=== PATIENT | male | born 1970 | race Caucasian/White ===

== ENCOUNTER 2016-12-25 12:25 | Inpatient (IN) | payer OTHER ==
[~2016-12-25] VITALS: Ht 172.7 cm; Wt 85.0 kg
--- NOTE | 2016-12-25 12:49 | NUR ---
PT REPORTS WAS SLEEPING AND WOKE UP WITH "SWEATING PERFUSELY" PER FAMILY MEMBER HE WAS BREATHING HARD AND NOTICED A RASH AROUND HIS CHEST AND BACK, PT STS "THINK I HAD A SEIZURE" PT REPORTS HAVING HX OF SEIZURES SINCE HE HAD "HEAD SURGERY ALMOST JUNE 6 YEARS AGO" PT REPORTS HX OF OPEN HEART SURGERY TWICE, STS "CHANGED VALVE IN [facility] IN " PT STS WHICH IS WHY HE CURRENTLY TAKES COUMADIN, SMALL PETECHAIE NOTED TO CHUCK SIDES OF NECK AND UPPER CHEST AND ABOVE SHOULDERS, DURING MSE ORAL TRAUMA NOTED TO LEFT SIDE OF TONGUE, PT DENIES CP BUT REPORTS BACK PAIN, PT REPORTS NO SIGNIFICANT CHANGES IN MOVEMING EXTREMITIES, PT FOLLOWING COMMANDS APPROPRIATELY, PT REPORTS CHANGES IN COUMADIN DOSES RECENTLY TO DR. PERLA, NO NEURO DEFICITS NOTED AT THIS TIME, PT REPORTS "BAD HEADACHE AND MY LEFT ARM HURT" PT SPEAKING IN CLEAR AND COMPLETE SENTENCES, NO FACIAL DROOPING, PT REPORTS PAIN TO LEFT SHOULDER UPON LIFTING UP, PT DENIES RECENT FALL, PT AAOX4, RESP EVEN AND UNLABORED, AT THIS TIME, 02 SAT 99% ON RA AT THIS TIME, PT IN NO ACUTE DISTRESS, CALL LIGHT WITHIN REACH, WILL CONTINUE TO MONITOR
--- NOTE | 2016-12-25 12:49 | NUR ---
DR. PERLA AT BEDSIDE FOR MSE
--- NOTE | 2016-12-25 13:00 | NUR ---
EKG IN PROGRESS
--- NOTE | 2016-12-25 13:02 | NUR ---
LAB AT BEDSIDE FOR BLOOD DRAW
[2016-12-25 13:12] LABS: BASOPHIL % 0.2 % (0-2); PLATELET COUNT 211 x10^3mcL (130-400); RED CELL DISTRIBUTION WIDTH 13.3 % (11.5-14.5)
--- NOTE | 2016-12-25 13:15 | NUR ---
[facility] RADIOLOGY AT BEDSIDE FOR XRAY OF LEFT SHOULDER
[2016-12-25 13:24] LABS: CALCIUM 9.2 mg/dL (8.5-10.1); CARBON DIOXIDE 25.9 mmol/L (21-32); CHLORIDE SERUM 98 mmol/L (98-107); CREATININE SERUM 0.9 mg/dL (0.7-1.3); GFR1 > 60 mL/min; GLUCOSE SERUM 109 mg/dL (74-106); POTASSIUM SERUM 3.9 mmol/L (3.5-5.1); SODIUM SERUM 135 mmol/L (136-145)
[2016-12-25 13:29] LABS: ALBUMIN 4.1 g/dL (3.4-5.0); ALKALINE PHOSPHATASE 67 U/L (46-116); ALT/SGPT 44 U/L (16-63); AST/SGOT 33 U/L (15-37); BILIRUBIN TOTAL 0.36 mg/dL (0.20-1.00); HDL CHOLESTEROL 43 mg/dL (40-60); MAGNESIUM 2.2 mg/dL (1.8-2.4); TOTAL PROTEIN, SERUM 7.4 g/dL (6.4-8.2)
[2016-12-25 13:36] LABS: CHOLESTEROL 262 mg/dL (<200)
--- NOTE | 2016-12-25 14:28 | NUR ---
PT TAKEN TO CT VIA WHEELCHAIR AND IN A STABLE CONDITION AT THIS TIME
--- NOTE | 2016-12-25 15:04 | NUR ---
PT BACK FROM CT WITH NO INCIDENCE
--- NOTE | 2016-12-25 15:23 | NUR ---
DR. PERLA AT BEDSIDE DISCUSSING POC WITH PT AND PTS FAMILY MEMBER
[2016-12-25] MEDS ORDERED: PHOSLO667 MG PO (15:54)
[2016-12-25] MEDS ORDERED: TOPROL XL25 MG PO (15:56)
[2016-12-25] MEDS ORDERED: COU5 PO (15:56)
[2016-12-25] MEDS ORDERED: ZOLOFT100 MG PO (15:57)
[2016-12-25] MEDS ORDERED: DIVALPROEX SOD500 M2 PO (15:57)
[2016-12-25] MEDS ORDERED: PRAZOSIN HYDROCH2 MG PO (15:58)
[2016-12-25] MEDS ORDERED: SEROQUEL XR300 M1 PO (15:58)
[2016-12-25] MEDS ORDERED: MASON NATURAL1000 IU PO (15:58)
[2016-12-25] MEDS ORDERED: TOPAMAX50 M1 PO (15:59)
--- NOTE | 2016-12-25 16:00 | NUR ---
MED REC COMPLETED, MRSA SWAB COLLECTED AND SENT TO LAB
[2016-12-25 16:27] LABS: T3 TOTAL 0.91 ng/mL
--- NOTE | 2016-12-25 16:49 | NUR ---
REPORT GIVEN TO ULISSES JACQUES TELE FLOOR TO ASSUME CARE OF PT AFTER TRANSPORT
--- NOTE | 2016-12-25 17:00 | NUR ---
PT REPORTS PAIN LOWERED FROM 9/10 TO 6/10 AT THIS TIME
[2016-12-25 17:07] VITALS: BP 143/82
--- NOTE | 2016-12-25 17:29 | NUR ---
RECEIVED PATIENT RESTING IN BED, IN NO ACUTE DISTRESS, C/O HEADACHE WILL MEDICATE ORDERED, SEIZURE PRECAUTIONS IN PLACE, ORIENTED PATIENT TO ROOM AND SURROUNDINGS, BED IN LOW POSITION, BED RAILS UP X 2, CALL LIGHT WITHIN REACH, WILL ENDORSE CARE TO [facility].
--- NOTE | 2016-12-25 18:08 | NUR ---
RECEIVED PATIENT ALERT AND ORIENTED TIMES FOUR. PATIENT WAS AT HOME AND GOT UP TO USE THE RESTROOM IN THE MORNING AND WAS DRENCHED IN SWEAT. PATIENT HAS NOTED BIT HIS TONGUE AND HAD A SORE LEFT SHOULDER. PER XRAY NO FRACTURE NOTED. ACCORDING TO THE CT OF THE HEAD NO INFARCT THAT IS NEW NOTED. PATIENT HAS A HISTORY OF CVA, BRAIN SURGERY, HTN, DEPRESSION AND POST TRAUMATIC STRESS SYNDROME. 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 PATIENT HAS CLEAR BREATH SOUNDS AND BOWEL SOUNDS ACTIVE. PATIENT ON TELE NUMBER [id number] AND IS NORMAL SINUS AT THIS TIME. PATIENT HAS BEEN GIVEN MORPHINE SEVERAL TIMES IN ER FOR A HEADACHE AND A BOLUS OF IV FLUIDS WELL. RECEIVED A CALL ABOUT THE LACTIC ACID LEVEL AND INFORM THE RAILROAD HAND OF 3.5. AWAITING ORDERS AT THIS TIME. PATIENT STATES HE HAS HAD TWO SURGERIES TO THE HEART AND HAS A ST RO[facility] VALVE ISSUE. PATIENT HAS HAD A CVA AND HX OF DEPRESSION. PATIENT STATES HE WAS SUFFERING FROM PTSD DUE TO HIS JOB IN THE [employer] AND HE STATES HE SAVE LIFES OF TWO MEN IN THE FIELD AND HE BELIEVES THIS CAUSED HIS DISORDER. PATIENT IS ABLE TO AMBULATE AND DENIES ANY FALL AT HOME.APPLIED THE SCDS AND IV FLUIDS AT 100CC PAT THIS TIME. SPOKE WITH THE DAUGHTER AND REFERED HER TO HER FATHER AND THEY SPOKE ON THE PHONE. PATIENT NOTED WITH MILD CARDIOMEGALY AND WITH A US OF THE CAROTID TO BE DONE WELL A FOLLOW LACTIC ACID. PATIEMT DID BIT HIS TONGUE ON THE LEFT SIDE OF THE MOUTH. OTHER LABS NOTED ARE WBCT 14.9, PT AT 45.2, PTT AT 51.9, CHOLESTEROL AT 262. VITALS IN THE ER WERE 159/93, 12, 84, 97%, AND 98.1. NOTED ALLERGY TO MOTRIN AND CAUSES STOMACH UPSET. WILL CONTINUE TO MONITOR AND SIDE RAILS PADDED FOR SEIZURE PROTOCAL.
[2016-12-25 18:27] LABS: AMYLASE 64 U/L (25-115); CHOLESTEROL 266 mg/dL (<200); CHOLESTEROL/HDL RATIO 6.3; HDL CHOLESTEROL 42 mg/dL (40-60); LIPASE 106 IU/L (73-393); PHOSPHOROUS 3.4 mg/dL (2.5-4.9); TRIGLYCERIDES 544 mg/dL (<150)
[2016-12-25 18:37] LABS: FREE T4 0.89 ng/dL (0.76-1.46); FREE THYROXINE INDEX 2.1 ug/dL (1.4-4.5); T4(THYROXINE) 6.2 ug/dL (4.7-13.3)
--- NOTE | 2016-12-25 19:45 | NUR ---
RECEIEVD Pt AAOX3 CALM AND COOPERATIVE WITH CARE. DENIES ANY CHEST PAIN. LUNG SOUNDS ARE CTA BILATERALLY. Pt IS ON ROOM AIR WITH PULSE OX OF 98%. C/O LEFT SHOULDER PAIN AND HEADACHE AT 6/10. ACTIVE BOWEL SOUNDS X4 QUADS. DENIES ANY ABD DISCOMFORT. VOIDS FREELY. REDNESS/RASH LIKE TO UPPER CHEST AREA/BLOWER INSTALLER. IV SITE TO LEFT HAND IS PATENT. RADIAL AND PEDAL PULSES ARE PRESENT. MOVES ALL EXTREMITIES, NO EDEMA NOTED. SCD'S IN PLACE. RE-ORIENTED TO ROOM AND CALL LIGHT SYSTEM WITHIN EASY REACH. WILL CONTINUE TO MONITOR.
[2016-12-25 20:48] VITALS: BP 142/97
--- NOTE | 2016-12-26 03:56 | NUR ---
Pt RESTING COMFORTABLY. WILL CONTINUE TO MONITOR.
--- NOTE | 2016-12-26 05:02 | NUR ---
NO SIGNIFICANT CHANGES NOTED OVER NIGHT. NO SEIZURES NOTED. MEDICATED NEEDED FOR LEFT SHOULDER PAIN AND HEADACHE ORDERED. IV SITE REMAINS PATENT. SAFETY AND COMFORT MEASURES REMAIN IN PLACE, WILL CONTINUE TO MONITOR.
--- NOTE | 2016-12-26 05:08 | NUR ---
I HAVE REVIEWED THE DATA COLLECTION BY SHANA (NAME): TOD KHAN ENTERED ON (DATE/TIME): 12/25/16 2100 I CONCUR WITH THE DATA AND ANY EXCEPTIONS OR COMMENTS ARE LISTED BELOW:
[2016-12-26 05:18] VITALS: BP 134/93
[2016-12-26 06:17] LABS: BASOPHIL % 0.3 % (0-2); PLATELET COUNT 185 x10^3mcL (130-400); RED CELL DISTRIBUTION WIDTH 13.4 % (11.5-14.5)
[2016-12-26 06:27] LABS: ALBUMIN 3.5 g/dL (3.4-5.0); CALCIUM 8.2 mg/dL (8.5-10.1); CARBON DIOXIDE 26.4 mmol/L (21-32); CHLORIDE SERUM 103 mmol/L (98-107); CREATININE SERUM 0.8 mg/dL (0.7-1.3); GFR1 > 60 mL/min; GLUCOSE SERUM 107 mg/dL (74-106); POTASSIUM SERUM 3.8 mmol/L (3.5-5.1); SODIUM SERUM 138 mmol/L (136-145)
--- NOTE | 2016-12-26 07:25 | NUR ---
RECEIVED REPORT FROM [facility] ADDY BARON, ALL QUESTIONS AND CONCERNS ADDRESSED AT THIS TIME, WILL ASSUME ALL CARE.
--- NOTE | 2016-12-26 07:40 | NUR ---
PT IS A&O X 4, SPEECH IS CLEAR, EYES OPEN SPONTANOUSLY AND PUPILS REACT TO LIGHT. PT FOLLOWS COMMANDS. PT COMPLAINING OF SHOULDER PAIN AND HEADACHE, WILL MEDICATE WITH PRN NORCO. PT ON RA, BREATHING EVEN AND UNLABORED, BUL CLEAR, BLL DIM, NO COUGH OR SECRETIONS NOTED. PT DENIES SOB, DYSURIA, PENILE DISCHARGE AND SCROTAL EDEMA. PT IS AMBULATORY WITH CANE. NO JOINT SWELLING OR OBVIOUS DEFORMITIES. PT HAS CALL ZURITA WITHIN REACH, SZ PADS IN PLACE AND IS EDUCATED ON USING CALL ZURITA. WILL CONTINUE TO MONITOR PT AT THIS TIME.
[2016-12-26 09:32] VITALS: BP 147/90
--- NOTE | 2016-12-26 11:20 | NUR ---
P.T. NOTES/INITIAL EVAL [id number] Pt WAS ADMITTED DUE TO ANS D/O; 12/25/16 CT HEAD:(-); XR (L)SHOULDER: UN- REMARKABLE; Pt LIVES IN 1-[place]I HOUSE W/ MOTHER (70s), AMBULATORY W/ SPC, DOES NOT DRIVE; [employer], HAS DAUGHTER; ORIGINALLY RIGHT-HANDED, BECAME LEFT-HANDED AFTER CRANIOTOMY PER PATIENT; AMBIDEXTROUS. S: Pt WAS SEEN AWAKE & ALERT IN BED, SPEAKS UKRAINIAN, ORIENTED x3, ABLE TO FOLLOW COMMANDS, AGREEABLE & COOPERATIVE W/ P.T.; SPEECH CLEAR; NO C/O PAIN OR DIZZINESS AT THIS TIME; OWN SPC IN ROOM; STATES ON & OFF (R)KNEE PAIN, ONGOING. O:BED MOBILITY: INDEP IN SUPINE TO SIT TRANSFERS: INDEP IN SIT TO STAND, TOILETTING GAIT: SUP/I W/ SPC X 284 FT, IV POLE IN TOW; SPC ON LEFT HAND Pt ASSISTED TO BED SAFELY; HOB ELEVATED, SIDERAIL PADS INTACT; SCDs RE APPLIED, ON ROOM AIR; APPRECIATIVE; CALL ZURITA, PHONE, TABLE IN REACH. A:Pt DEMO GOOD RESPONSE TO P.T. SESSION; NO NOTED LOSS OF BALANCE DURING GAIT; NO NOTED FACIAL DROOPING OR DROOLING AT THIS TIME; Pt EDUC ON SAFE GAIT, HEP, USE OF CALL LIGHT FOR NURSE ASSIST, AMBU W/ NURSE STAFF W/ SPC AD FELIPE, VERBALIZED UNDERSTANDING, GOOD FOLLOW THRU; HL=840/95, UM=852, O2 SAT ROOM AIR=95% P: D/C FROM P.T. AFTER EVAL, NURSING TO [facility] PATIENT AD FELIPE W/ SPC. EVAL30,PVE(TOILETTING,VITAL SIGNS ASSESSMENT) GCODES:[id number] FUNC REACH SCORE:25 inches
--- NOTE | 2016-12-26 11:21 | NUR ---
URINE SENT TO LAB FOR UDS AND UA.
[2016-12-26 11:58] LABS: UA SPECIFIC GRAVITY <=1.005 (1.005-1.035); microscopic required? YES; urine erythrocyte 1+ (NEGATIVE)
[2016-12-26 12:18] LABS: AMPHETAMINE QUAL UR NONE DETECTED (NEG <=1000)
[2016-12-26 12:53] VITALS: BP 133/92
--- NOTE | 2016-12-26 12:59 | NUR ---
PT RESTING IN BED AND STATES HE IS FEELING BETTER AND DENIES PAIN. WILL CONTINUE TO MONITOR.
--- NOTE | 2016-12-26 15:09 | NUR ---
IN BED. RESP EQUAL AND UNLABORED, NO DISTRESS NOTED. WILL CONTINUE TO MONITOR
[2016-12-26 16:37] VITALS: BP 139/92
--- NOTE | 2016-12-26 19:23 | NUR ---
RECEIVED PATIENT FROM RN-SURU. PATIENT VERBALIZED PAIN 6/10 TO LEFT SHOULDER AND HEADACHE PAIN. STATED THAT HE WANTS TO WAIT FOR [facility] AT 1999 DUE TO NOT DUE YET.
[2016-12-26 22:00] VITALS: BP 133/96
[2016-12-26 22:20] VITALS: BP 125/78
--- NOTE | 2016-12-26 23:32 | NUR ---
PATIENT C/O PAIN TO LEFT SHOULDER 01/18, REFUSING PAIN MEDICATION AT THIS TIME. PROVIDED PILLOW AND ICE PACKS TO LEFT SHOULDER.
--- NOTE | 2016-12-27 06:02 | NUR ---
PATIENT C/O PAIN TO LEFT SHOULDER 6/10 THROBBING. PROVIDED PAIN MEDICATION. AND ELEVATED ON PILLOW FOR COMFORT. NO SEIZURE ACTIVITY NOTED.
[2016-12-27 06:11] VITALS: BP 122/84
[2016-12-27 06:14] LABS: BASOPHIL % 0.2 % (0-2); PLATELET COUNT 203 x10^3mcL (130-400); RED CELL DISTRIBUTION WIDTH 13.5 % (11.5-14.5)
[2016-12-27 06:46] LABS: ALBUMIN 3.5 g/dL (3.4-5.0); CALCIUM 8.6 mg/dL (8.5-10.1); CARBON DIOXIDE 24.1 mmol/L (21-32); CHLORIDE SERUM 102 mmol/L (98-107); CREATININE SERUM 0.8 mg/dL (0.7-1.3); GFR1 > 60 mL/min; GLUCOSE SERUM 99 mg/dL (74-106); POTASSIUM SERUM 4.1 mmol/L (3.5-5.1); SODIUM SERUM 138 mmol/L (136-145)
--- NOTE | 2016-12-27 07:16 | NUR ---
PROVIDED BEDSIDE REPORT TO AM ULISSES MILES. PATIENT QUIETLY RESTING IN BED AT THIS TIME. NO S/SX OF DISTRESS NOTED. VERBALIZED RELIEF FROM PAIN MEDICATION PROVIDED. SAFETY PRECAUTIONS IN PLACE.
--- NOTE | 2016-12-27 07:30 | NUR ---
A/O X4. CLEAR SPEECH. FOLLOW COMMANDS. ON TEL 20 SR HR 84. RADIAL AND PEDAL PULSES PALPABLE. NO EDEMA OR SWELLING NOTED. <3 SECS CAP REFILL. SCDS IN PLACED. ON RA SAT 97%. BREATHING EVEN AND UNLABORED. CLEAR LUNG SOUNDS. DENIES SOB. NO NVD. VOIDING ADEQUATELY. USES URINAL. HAS MILD GENERALIZED WEAKNESS. USES CANE TO AMBULATE WITH STEADY GAIT. NO SKIN TEAR OR OPEN WOUND. DOES HAVE REDNESS TO CHEST. DENIES PAIN AT THIS TIME. IV SITE INTACT ON LEFT HAND. NS INFUSING WELL AT 100 ML/HR. WILL CONTINUE TO MONITOR. CALL LIGHT WITHIN REACH.
--- NOTE | 2016-12-27 08:35 | NUR ---
TOOK MEDS WITHOUT DIFFICULTY.
[2016-12-27 09:36] VITALS: BP 119/85
--- NOTE | 2016-12-27 10:32 | NUR ---
RESTING COMFORTABLY AT BEDSIDE. NO DISTRESS NOTED.
--- NOTE | 2016-12-27 12:55 | NUR ---
P.T. NOTES/RE FRANAL [id number] S:Pt WAS SEEN AWAKE & ALERT IN BED, SPEAKS MALAY, ORIENTED x3, ABLE TO FOLLOW COMMANDS, AGREEABLE & COOPERATIVE W/ P.T., STATES "HIS (L)SHOULDER MOVES BETTER TODAY THAN YESTERDAY, STATES HIS (L)SHOULDER HAS ON & OFF WEAKNESS, STARTED AFTER HE HAD SEIZURE ATTACKS, STATES THE MOST RECENT SEIZURE ATTACK HE HAD, HIS MOTHER TOLD HIM IT WAS NOT LIKE THE OTHERS, HE WAS NOT SHAKING BUT HE WAS TALKING IN DIFFERENT LANGUAGE LIKE A DEMON"; NO C/O PAIN OR DIZZINESS AT THIS TIME; SPEECH CLEAR; OWN SPC IN ROOM. O:BED MOBILITY: INDEP IN SUPINE TO SIT TRANSFERS: INDEP IN SIT TO STAND GAIT: SUP/I W/ SPC X 216 FT Pt RETURNED TO BED SAFELY, CALL ZURITA, PHONE, TABLE IN REACH; APPRECIATIVE; ON ROOM AIR. A:Pt DEMO GOOD RESPONSE TO P.T. SESSION; SEIZURE PREC, ASP PREC; NO NOTED LOSS OF BALANCE AT THIS TIME; NO NOTED FACIAL DROOPING OR DROOLING OR ONE SIDED LEANING AT THIS TIME; ABLE TO ACTIVELY FLEX (L)UE, W/ EFFORT, SLOW MOVEMENT. P:D/C FROM P.T. AFTER TX; NURSING TO AMBU PATIENT W/ SPC AD FELIPE. RE EVAL30 GCODES:[id number] FUN REACH SCORE:25 inches [id number] Pt WAS GIVEN THERA EXER UE (EMPHASIS ON L SHOULDER), GIVEN HAND OUTS FOR HEP. EX
[2016-12-27 14:52] VITALS: BP 119/85
--- NOTE | 2016-12-27 16:18 | NUR ---
DC INSTRUCTION GIVEN. NO SCRIPT GIVEN. IV SITE INTACT AND DC'D. NO TELEBOX.ESCORTED Pt DOWN THE LOBBY VIA WHEELCHAIR.
== END 2016-12-27 16:10 | disposition home or self-care (01) | DRG 101 ==
LOC: ED 12:25 → DU 15:31 → MU 12-27 10:20
PROVIDERS: Emergency Medicine; Family Medicine; ADMIT Family Medicine
DX: G40.409 Other generalized epilepsy and epileptic syndromes, not intractable, without status epilepticus (principal); E87.1 Hypo-osmolality and hyponatremia; R23.3 Spontaneous ecchymoses; E83.51 Hypocalcemia; T45.515A Adverse effect of anticoagulants, initial encounter; E78.5 Hyperlipidemia, unspecified; M25.511 Pain in right shoulder; G25.2 Other specified forms of tremor; Z87.891 Personal history of nicotine dependence; Z95.4 Presence of other heart-valve replacement; F43.10 Post-traumatic stress disorder, unspecified; Z68.28 Body mass index [BMI] 28.0-28.9, adult; Y92.012 Bathroom of single-family (private) house as the place of occurrence of the external cause
CPT/HCPCS: 80307; 83880; 84439; 97110-GP; 97164; J2270; J2405; J7030; Q0092

== ENCOUNTER 2019-04-11 14:52 | Emergency (ER) | payer OTHER ==
[~2019-04-11] VITALS: Ht 172.7 cm; Wt 90.7 kg
[~2019-04-11 14:52] MED LIST: COU5 PO; DIVALPROEX SOD500 M2 PO; MASON NATURAL1000 IU PO; PHOSLO667 MG PO; PRAZOSIN HYDROCH2 MG PO; SEROQUEL XR300 M1 PO; TOPAMAX50 M1 PO; TOPROL XL25 MG PO; ZOLOFT100 MG PO
[2019-04-11 15:01] VITALS: Ht 172.7 cm; Wt 90.7 kg
[2019-04-11 16:11] LABS: BASOPHIL % 0.2 % (0-2); PLATELET COUNT 245 x10^3mcL (130-400)
[2019-04-11 16:22] LABS: CALCIUM 8.4 mg/dL (8.5-10.1); CARBON DIOXIDE 24.3 mmol/L (21-32); CHLORIDE SERUM 103 mmol/L (98-107); GFR1 > 60 mL/min; GLUCOSE SERUM 108 mg/dL (74-106); POTASSIUM SERUM 4.2 mmol/L (3.5-5.1); SODIUM SERUM 138 mmol/L (136-145)
[2019-04-11 16:27] LABS: ALBUMIN 4.1 g/dL (3.4-5.0); ALKALINE PHOSPHATASE 65 U/L (46-116); ALT/SGPT 52 U/L (16-63); AST/SGOT 26 U/L (15-37); BILIRUBIN TOTAL 0.4 mg/dL (0.20-1.00); TOTAL PROTEIN, SERUM 7.1 g/dL (6.4-8.2)
[2019-04-11 18:58] VITALS: BP 125/75
== END 2019-04-11 18:58 | disposition home or self-care (01) ==
LOC: ED 14:52
PROVIDERS: Emergency Medicine
DX: G40.909 Epilepsy, unspecified, not intractable, without status epilepticus (principal); I10 Essential (primary) hypertension; F32.9 Major depressive disorder, single episode, unspecified; Z88.6 Allergy status to analgesic agent; Z95.4 Presence of other heart-valve replacement
CPT/HCPCS: G0480; J7030